=== PATIENT | female | born 1990 | race Caucasian/White ===

== ENCOUNTER 2017-02-20 13:47 | Emergency (ER) | payer BC, OTHER ==
[2017-02-20 13:56] VITALS: BMI 38.4
--- NOTE | 2017-02-20 14:35 | PDOC ---
History of Present Illness - General History Source: Patient Exam Limitations: No Limitations - History of Present Illness Initial Comments: 02/20/17 14:36 The patient is a 26-year-old woman, , currently 8 weeks , with a past medical history of urinary tract infections, who presents to the emergency department via walk-in for further evaluation of possible for food poising. She recalls eating [place] food- White rice and sweet and sour chicken with her for dinner, yesterday at approximately 18:00PM. Patient states that she woke up nauseous and vomited at approximately 01:00 AM and has vomited every hour on the hour. last episode was at 13:27 this afternoon. No noted blood/ mucous in emesis. She also reports associated symptoms of epigastric cramping discomfort and lightheadedness. She states that her does not present any symptoms. No recent travel. She also recalls eating chicken, for lunch yesterday, which her did not consume. No history of gastrointestinal issues. Her first visit will be in 4 days. She denies fever, generalized weakness. She denies chest pain, shortness of breath, cough She denies diarrhea, dysuria, hematuria, urinary frequency and urgency, flank pain, vaginal discharge/vaginal bleeding Allergies: No Known Drug Allergies Past Surgical History: None reported Social History: No tobacco, ETOH and recreational drug use. <Shari Alcantara - Last Filed: 02/20/17 14:53> <Shad Chowdary - Last Filed: 02/20/17 15:58> - General Chief Complaint: Nausea/Vomiting Stated Complaint: POTENTIAL FOOD POISONING (8 WKS ) Time Seen by Provider: 02/20/17 14:31 Past History <Shari Alcantara - Last Filed: 02/20/17 14:53> - Past Medical History Disorders: Yes (UTI X4) Suicide Attempt (Hx): No - Reproductive History Is Patient Now?: Yes (#): 1 - Immunization History Immunization Up to Date: Yes - Psycho/Social/Smoking Cessation Hx Anxiety: No Suicidal Ideation: No Smoking History: Never smoked Have you smoked in the past 12 months: No Information on smoking cessation initiated: No Hx Alcohol Use: No Drug/Substance Use Hx: No Substance Use Type: None <Shad Chowdary - Last Filed: 02/20/17 15:58> - Past Medical History Allergies/Adverse Reactions: Allergies Allergy/AdvReac Type Severity Reaction Status Date / Time No Known Allergies Allergy Verified 02/20/17 13:53 Home Medications: Ambulatory Orders No Home Medications 0 dose .ROUTE UTDICT 11/23/13 Review of Systems - Review of Systems Constitutional: No: Chills, Fever Respiratory: No: Cough, Shortness of Breath Cardiac (ROS): No: Chest Pain ABD/GI: Yes: Diarrhea, Nausea, Vomiting : No: Dysuria All Other Systems: Reviewed and Negative <Shad Chowdary - Last Filed: 02/20/17 15:58> *Physical Exam - Vital Signs Last Vital Signs Temp Pulse Resp BP Pulse Ox 98.2 F 100 H 20 108/56 98 02/20/17 13:53 02/20/17 13:53 02/20/17 13:53 02/20/17 13:53 02/20/17 13:53 - Physical Exam Comments: 02/20/17 14:37 GENERAL: The patient is awake, alert, and fully oriented, in no acute distress. HEAD: Normal with no signs of trauma. EYES: Pupils equal, round and reactive to light, extraocular movements intact, sclera anicteric, conjunctiva clear with no pallor. ENT: Ears normal, nares patent, oropharynx clear without exudates. Dry mucous membranes. NECK: Normal range of motion, supple without lymphadenopathy, JVD, or masses. LUNGS: Breath sounds equal, clear to auscultation bilaterally. No wheeze/ crackles. HEART: Regular rate and rhythm, normal S1 and S2 without murmur or rub. ABDOMEN: Soft/nontender/nondistended. BS wnl. No guarding or rebound. No palpable masses. No hepatosplenomegaly. EXTREMITIES: Normal range of motion, no edema. No clubbing or cyanosis. No cords, erythema, or tenderness. NEUROLOGICAL: Cranial nerves II through XII grossly intact. Normal speech, normal gait. PSYCH: Normal mood, normal affect. SKIN: Warm, Dry, normal turgor, no rashes or lesions noted. <Shari Alcantara - Last Filed: 02/20/17 14:53> - Vital Signs Last Vital Signs Temp Pulse Resp BP Pulse Ox 98.2 F 100 H 20 108/56 98 02/20/17 13:53 02/20/17 13:53 02/20/17 13:53 02/20/17 13:53 02/20/17 13:53 <Shad Chowdary - Last Filed: 02/20/17 15:58> Medical Decision Making - Medical Decision Making 02/20/17 14:55 A portion of this note was documented by scribe services under my direction. I have reviewed the details of the note, within reason, and agree with the documentation with the following case summary and management plan written by me. 26-year-old female healthy and at 8 weeks gestation presents for evaluation of nausea/vomiting/diarrhea overnight, no associated abdominal pain or vaginal bleeding or discharge. Beginning to feel a little lightheaded, so presents for evaluation. No fevers or chills, no recent travel, no sick contacts, no recent antibiotics. A [place] food last night, but ate the same thing and he feels fine. No abdominal pain. Vital signs normal. Dry mucosa. Abdomen is benign. 26-year-old female with nausea/vomiting/diarrhea overnight, benign abdominal exam without peritoneal findings. Presentation seems most consistent with gastroenteritis, question viral versus toxin mediated. Patient is well- appearing without red flags on history or physical exam. check UA and confirm status Antiemetics IV fluid rehydration Reassess 02/20/17 15:54 Urine positive, trace ketones, only 4 white blood cells with many epithelial cells, not suspicious for subclinical UTI in woman. Markedly improved after IV fluids and Reglan, tolerating by mouth, sitting up and smiling. Agrees with discharge plan, will follow-up with her OB, understands return criteria. <Shad Chowdary - Last Filed: 02/20/17 15:58> *DC/Admit/Observation/Transfer - Attestations Scribe Attestion: 02/20/17 14:37 Documentation prepared by Shari Alcantara, acting as medical writer for Shad Chowdary MD. <Shair Alcantara - Last Filed: 02/20/17 14:53> <Shad Chowdary - Last Filed: 02/20/17 15:58> Diagnosis at time of Disposition: Acute gastroenteritis - Discharge Dispostion Disposition: HOME Condition at time of disposition: Improved - Patient Instructions Printed Discharge Instructions: DI for Viral Gastroenteritis -- Adult Additional Instructions: Activity as tolerated. Stay hydrated. Advance diet as tolerated, avoiding dairy , spicy or fatty foods, caffeine and alcohol. Speak to your OB about whether they are okay with you taking anti-nausea medications. 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 Return to the emergency department for any new or concerning symptoms, particularly persistent or worsening vomiting or diarrhea or dehydration, abdominal pain, fevers or chills, bleeding or discharge.
[2017-02-20] MEDS ORDERED: METOCLOPRAMIDE HCL 10 MG TABLET (FP) PO ONE ×2 (14:37→14:38)
[2017-02-20] MEDS ORDERED: SODIUM CHLORIDE 1,000 ML IV ONE (14:49)
[2017-02-20] MEDS ORDERED: FAMOTIDINE 20 MG/50 ML IVPB 50 ML IVPB ONE ×2 (14:52→14:53)
[2017-02-20 14:59] LABS: URINE APPEARANCE SLCLOUDY; URINE BILIRUBIN NEGATIVE (NEGATIVE); URINE COLOR YELLOW; URINE GLUCOSE (UA) NEGATIVE (NEGATIVE); URINE KETONE TRACE (NEGATIVE); URINE NITRITE NEGATIVE (NEGATIVE); URINE PROTEIN NEGATIVE (NEGATIVE); URINE UROBILINOGEN NEGATIVE E.U./dl (0.2-1.0)
[2017-02-20 15:01] LABS: URINE BLOOD 2+ (NEGATIVE); URINE LEUK ESTERASE TRACE (NEGATIVE)
[2017-02-20 15:03] LABS: URINE BACTERIA MODERATE /hpf (NONE SEEN); URINE MUCUS MANY; URINE RBC 11 /hpf (0-3); URINE WBC 4 /hpf (3-5)
[2017-02-20 16:20] VITALS: BP 117/74; PULSE 87; TEMP 98.6
== END 2017-02-20 16:20 | disposition home or self-care (01) ==
LOC: JER 13:47
PROC: 3E033GC Introduction of Other Therapeutic Substance into Peripheral Vein, Percutaneous Approach (ICD-10-PCS; principal; 2017-02-20)
DX: O99.89 Other specified diseases and conditions complicating pregnancy, childbirth and the puerperium (principal); K52.9 Noninfective gastroenteritis and colitis, unspecified; Z3A.08 8 weeks gestation of pregnancy
CPT/HCPCS: 81003; 81015; 84703; 99284-25

== ENCOUNTER 2017-10-13 04:52 | Inpatient (IN) | payer BC ==
[2017-10-13] MEDS ORDERED: DEXTROSE 5%-LACTATED RINGERS 1,000 ML IV ONE (05:55)
[2017-10-13 06:09] VITALS: BMI 40.6
[2017-10-13 06:22] LABS: BASOPHIL 0.1 % (0-2.0); EOSINOPHIL 0.2 % (0-4.5); MCH 26.3 pg (25.7-33.7); MCHC 33.1 g/dl (32.0-36.0); MEAN CELL VOLUME 79.4 fl (80-96); MEAN PLT VOLUME 8.8 fl (7.5-11.1); NEUTROPHILS 78.2 % (42.8-82.8); PLATELET COUNT 237 K/MM3 (134-434); RDW 15.2 % (11.6-15.6); WHITE BLOOD COUNT 13.1 K/mm3 (4.0-10.0)
[2017-10-13 07:00] LABS: ANION GAP 8 (8-16); CALCIUM 8.4 mg/dL (8.5-10.1); CO2 23 mmol/L (21-32); CREATININE 0.8 mg/dL (0.55-1.02); GLUCOSE,RANDOM 92 mg/dL (74-106); INR 0.95 (0.82-1.09); PROTHROMBIN TIME (PATIENT) 10.7 SEC (9.98-11.88)
[2017-10-13] MEDS ORDERED: TUBERCULIN PPD 5 TU/0.1ML SYRINGE (IN PATIENT USE ONLY) ID ONE (08:00)
[2017-10-13] MEDS ORDERED: OXYTOCIN 15 UNITS/ LR 250 ML 15 UNIT/250 ML INFUS.BAG IVPB ONE (09:12)
[2017-10-13] MEDS ORDERED: OXYTOCIN 15 UNITS/ LR 250 ML 15 UNIT/250 ML INFUS.BAG IVPB SCH (09:20)
--- NOTE | 2017-10-13 15:22 | HP ---
Past Medical History - Primary Care Physician PCP:: Charan Vargas - Admission Chief Complaint: 39 .5 weeks, labor History of Present Illness: 26 yo f g 1p0 edc by sono112/16/16 in labor , cx 4 cm 80 vx -2 mi, fhr cat 1, contraction , irregular History Source: Patient Limitations to Obtaining History: No Limitations - Past Medical History ...: 1 ...Para: 0 ...Term: 0 ...: 0 ...Spon : 0 ...Induced : 0 ...Multiple Gestation: 0 ...LMP: 12/28/16 ... Weeks Gestation by Dates: 41.2 ...EDC by Dates: 10/04/17 ...EDC by Sono: 10/15/17 - Past Surgical History Hx Myomectomy: No Hx Transabdominal Cerclage: No - Smoking History Smoking history: Never smoked Have you smoked in the past 12 months: No - Alcohol/Substance Use Hx Alcohol Use: No - Social History Usual Living Arrangement: Yes: With Spouse History of Recent Travel: No Home Medications - Allergies Allergies/Adverse Reactions: Allergies Allergy/AdvReac Type Severity Reaction Status Date / Time No Known Drug Allergies Allergy Verified 10/13/17 06:32 coconut Allergy Mild Hives Uncoded 10/13/17 06:32 - Home Medications Home Medications: Ambulatory Orders Vitamins (Sjr) - 1 tab PO DAILY 08/19/17 Review of Systems - Review of Systems Constitutional: reports: No Symptoms Eyes: reports: No Symptoms HENT: reports: No Symptoms Neck: reports: No Symptoms Cardiovascular: reports: No Symptoms Respiratory: reports: No Symptoms Gastrointestinal: reports: No Symptoms Genitourinary: reports: No Symptoms Breasts: reports: No Symptoms Reported Musculoskeletal: reports: No Symptoms Integumentary: reports: No Symptoms Neurological: reports: No Symptoms Endocrine: reports: No Symptoms Hematology/Lymphatic: reports: No Symptoms Psychiatric: reports: No Symptoms Physical Exam - Maternity Vital Signs: Vital Signs Temperature 97.7 F 10/13/17 14:00 Pulse Rate 90 10/13/17 14:00 Respiratory Rate 20 10/13/17 14:00 Blood Pressure 118/68 10/13/17 14:00 O2 Sat by Pulse Oximetry (%) Constitutional: Yes: Well Nourished, No Distress, Calm Eyes: Yes: WNL, Conjunctiva Clear, EOM Intact HENT: Yes: WNL, Atraumatic, Normocephalic Neck: Yes: WNL, Supple, Trachea Midline Cardiovascular: Yes: WNL, Regular Rate and Rhythm Breast(s): Yes: WNL - Abdominal Exam/OB Fundal Height: 40 Number of Fetuses: Single Presentation: Vertex Contractions: Yes Regularity: Irregular Intensity: Mod/Strong Monitor Mode: External Heart Rate Location: [facility] [place] Category: I Accelerations: Uniform Decelerations: None - Vaginal Exam/OB Vaginal Bleediing: Bloody Show Speculum Exam: No Dilatation (cm): 4 cm Effacement (%): 80 Amniotic Membrane Status: Intact Presentation: Vertex/Position Station: -2 - Physical Exam Edema: No Edema: LLE: Trace, RLE: Trace Deep Tendon Reflex Grade: Normal +2 - Labs Lab Results: CBC, BMP 10/13/17 05:55 10/13/17 05:55 Hemorrhage Risk Assessment - Risk Factors Medium Risk Factors: Yes: None Risk Score: 1 Risk Level: Medium Risk Problem List - Problems (1) with 39 completed weeks gestation Code(s): Z3A.39 - 39 WEEKS GESTATION OF (2) Labor established Code(s): DQZ0780 - Assessment/Plan admit for vaginal delivery, heart monitoring, pitocin if comtraction does not become regular
[2017-10-13] MEDS ORDERED: BUTORPHANOL TARTRATE 1 MG/ML VIAL ONE ×2 (19:49)
[2017-10-13] MEDS ORDERED: PROMETHAZINE HCL 25 MG/1 ML VIAL ONE (19:49)
--- NOTE | 2017-10-13 19:50 | PN ---
Progress Note (short form) - Note Progress Note: cx 8 cm, 80 vx -1 mr, fhr cat 1 , wants pain meds. advise low dose pitocin, cont FHM Problem List - Problems (1) with 39 completed weeks gestation Code(s): Z3A.39 - 39 WEEKS GESTATION OF (2) Labor established Code(s): BJS6574 -
[2017-10-13] MEDS ORDERED: BUTORPHANOL TARTRATE 1 MG/ML VIAL IVPUSH ONE (20:00)
[2017-10-13] MEDS ORDERED: PROMETHAZINE HCL 25 MG/1 ML VIAL IVPUSH ONE (20:00)
--- NOTE | 2017-10-13 22:27 | PN ---
Progress Note (short form) - Note Progress Note: cx 9 cm, 80 vx , -1, OP , fhr cat 1,. c/o pain advised epidural declined Problem List - Problems (1) with 39 completed weeks gestation Code(s): Z3A.39 - 39 WEEKS GESTATION OF (2) Labor established Code(s): BFG4503 -
[2017-10-13] MEDS: ELECTROLYTE-148 SOLN 1,000 ML IV SCH (22:30)
[2017-10-13] MEDS ORDERED: FENTANYL/BUPIVACAINE/NS/PF - PCEA - 50 ML DISP.SYRIN EP ONE (22:33)
--- NOTE | 2017-10-13 22:46 | PN ---
Progress Note (short form) - Note Progress Note: wants epidural now, anesthesia informed Problem List - Problems (1) with 39 completed weeks gestation Code(s): Z3A.39 - 39 WEEKS GESTATION OF (2) Labor established Code(s): [id number] -
[2017-10-13] MEDS ORDERED: FENTANYL/BUPIVACAINE/NS/PF - PCEA - 50 ML DISP.SYRIN EP SCH (23:30)
[2017-10-14] MEDS ORDERED: OXYTOCIN 20 UNITS in 0.9% NS 20 UNIT/1,000 ML INFUS.BAG IV ONE (00:07)
[2017-10-14] MEDS ORDERED: METHYLERGONOVINE MALEATE 0.2 MG/1 ML AMP IM PRN (02:43)
[2017-10-14] MEDS ORDERED: BENZOCAINE 28 GM HEMORRHOIDAL OINTMENT TP PRN (02:43)
[2017-10-14] MEDS ORDERED: oxyCODONE HCL 5 MG TABLET PO PRN (02:43)
[2017-10-14] MEDS ORDERED: WITCH HAZEL 50% (TUCKS) 40 PAD/JAR PAD TP PRN (02:43)
[2017-10-14] MEDS ORDERED: BENZOCAINE 20% 57 GM BOTTLE TP PRN (02:43)
[2017-10-14] MEDS ORDERED: BISACODYL 10 MG SUPP.RECT RC PRN (02:43)
[2017-10-14] MEDS ORDERED: D5W-LR W/ 20 UNITS OXYTOCIN 20 UNIT/1,000 ML INFUS.BAG IV SCH (02:45)
[2017-10-14] MEDS: FERROUS SO4 325 MG TABLET (FP) PO SCH ×2 (09:58→21:18)
[2017-10-14] MEDS: PRENATAL VITAMINS W/ FOLIC ACID TABLET (FP) PO SCH (09:58)
[2017-10-14] MEDS: ACETAMINOPHEN 325 MG TABLET (FP) PO PRN ×2 (10:01→21:18)
[2017-10-14] MEDS: IBUPROFEN 600 MG TABLET (FP) PO PRN ×2 (10:01→21:19)
[2017-10-15 08:03] LABS: BASOPHIL 0.4 % (0-2.0); MCH 25.4 pg (25.7-33.7); MCHC 31.7 g/dl (32.0-36.0); MEAN CELL VOLUME 80.3 fl (80-96); MEAN PLT VOLUME 8.4 fl (7.5-11.1); NEUTROPHILS 74.4 % (42.8-82.8); PLATELET COUNT 223 K/MM3 (134-434); RDW 15.4 % (11.6-15.6); WHITE BLOOD COUNT 15.6 K/mm3 (4.0-10.0)
[2017-10-15] MEDS: IBUPROFEN 600 MG TABLET (FP) PO PRN (10:03)
[2017-10-15] MEDS: ACETAMINOPHEN 325 MG TABLET (FP) PO PRN (10:03)
[2017-10-15] MEDS: FERROUS SO4 325 MG TABLET (FP) PO SCH ×2 (10:03→21:26)
[2017-10-15] MEDS: PRENATAL VITAMINS W/ FOLIC ACID TABLET (FP) PO SCH (10:03)
--- NOTE | 2017-10-15 15:31 | PN ---
Progress Note (short form) - Note Progress Note: ppd 1 doing well, no excess vaginal bleeding, abdomen soft, no distension, no cva lochia mild , no calf tenderness plan ambulate , observe CBC, BMP 10/15/17 07:00 10/13/17 05:55 Last Vital Signs Temp Pulse Resp BP Pulse Ox 98.1 F 89 20 109/69 100 10/15/17 10:00 10/15/17 10:00 10/15/17 10:00 10/15/17 10:00 10/14/17 04:00 plan for d/c home in am Problem List - Problems (1) with 39 completed weeks gestation Code(s): Z3A.39 - 39 WEEKS GESTATION OF (2) Labor established Code(s): [id number] -
[2017-10-15] MEDS ORDERED: SENNOSIDES/DOCUSATE COMBO (SENNA PLUS) TABLET (UD) PO PRN (22:00)
[2017-10-15 23:50] VITALS: PULSE 84
--- NOTE | 2017-10-16 08:11 | DS ---
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 Signs: Vital Signs Temperature 98.1 F 10/15/17 21:00 Pulse Rate 84 10/15/17 21:00 Respiratory Rate 20 10/15/17 21:00 Blood Pressure 121/66 10/15/17 21:00 O2 Sat by Pulse Oximetry (%) 100 10/14/17 04:00 Constitutional: Yes: Well Nourished, No Distress, Calm Eyes: Yes: WNL, Conjunctiva Clear, EOM Intact HENT: Yes: WNL, Atraumatic, Normocephalic Neck: Yes: WNL, Supple, Trachea Midline Cardiovascular: Yes: WNL, Regular Rate and Rhythm Respiratory: Yes: WNL, Regular, CTA Bilaterally Gastrointestinal: Yes: WNL ...Rectal Exam: Yes: WNL Renal/: Yes: WNL ....Post : Yes: Uterus firm, Uterus non-tender, Slight lochia rubra Breast(s): Yes: WNL Musculoskeletal: Yes: WNL Extremities: Yes: WNL Edema: No Integumentary: Yes: WNL Neurological: Yes: WNL, Alert, Oriented ...Motor Strength: WNL Psychiatric: Yes: WNL, Alert, Oriented Labs: CBC, BMP 10/15/17 07:00 10/13/17 05:55 Delivery - Delivery Vaginal Delivery: Spontaneous (no complication) Type of Anesthesia: Epidural Episiotomy/Laceration: None EBL (cc): 300 Delivery, Single - Stages of Labor Date 1st Stage Initiatied: 10/13/17 Time 1st Stage Initiated: 01:00 Date 2nd Stage Initiated: 10/14/17 Time 2nd Stage Initiated: 02:00 Date of Delivery: 10/14/17 Time of Delivery: 02:32 Time Placenta Delivered: 02:37 Placenta: Yes: Spontaneous - 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: No Gender: Male Weight: 9 lb 3 oz Position: Left, OA Total Hours ROM (Hrs/Mins): 1237 - 1 Minute Total Score: 9 5 Minutes Total Score: 9 - [place] Feeding Plan Initial Plan: Exclusive throughout hospitalization Discharge Summary Reason For Visit: LABOR ADMIT Current Active Problems Labor established (Acute) with 39 completed weeks gestation (Acute) Procedures: Principal: Condition: Good - Instructions Diet, Activity, Other Instructions: regular diet, follow up office 4 weeks Referrals: Charan Vargas MD [Staff Physician] - Disposition: HOME - Home Medications Comprehensive Discharge Medication List: Ambulatory Orders Vitamins (Sjr) - 1 tab PO DAILY 08/19/17
[2017-10-16] MEDS: PRENATAL VITAMINS W/ FOLIC ACID TABLET (FP) PO SCH (09:16)
[2017-10-16] MEDS: FERROUS SO4 325 MG TABLET (FP) PO SCH (09:16)
[2017-10-16] MEDS: ELECTROLYTE-148 SOLN 1,000 ML IV SCH (09:18)
[2017-10-16 09:20] VITALS: BP 110/60; TEMP 98.4
== END 2017-10-16 12:10 | disposition home or self-care (01) | DRG 775 ==
LOC: JDEL 04:52 → JLDR 04:55 → J3W 10-14 04:46
PROVIDERS: ADMIT Obstetrics & Gynecology; ATTEND Obstetrics & Gynecology
PROC: 10E0XZZ Delivery of Products of Conception, External Approach (ICD-10-PCS; principal; 2017-10-14)
DX: O99.214 Obesity complicating childbirth (principal); Z68.41 Body mass index [BMI] 40.0-44.9, adult; E66.8 Other obesity; Z3A.39 39 weeks gestation of pregnancy; Z37.0 Single live birth
CPT/HCPCS: 36415; 59409; 80048; 85025; 85610; 85730; 86593; 86780; 86850; 86900; 86901

== ENCOUNTER 2019-04-30 16:42 | Emergency (ER) | payer BC | END 2019-04-30 20:35 | disposition home or self-care (01) | LOC: JER 16:42 ==

== ENCOUNTER 2019-12-08 16:47 | Inpatient (IN) | payer BC ==
[2019-12-08] MEDS ORDERED: AMPICILLIN - 2 GM in SODIUM CHLORIDE 100 ML IVPB ONE (17:35)
[2019-12-08 18:09] VITALS: BMI 40.7
[2019-12-08] MEDS ORDERED: ELECTROLYTE-148 SOLN 1,000 ML IV SCH (18:15)
[2019-12-08 18:28] LABS: BASO % 0.3 % (0-2.0); EOS % 0.4 % (0-4.5); HEMATOCRIT 32.8 % (32.4-45.2); HEMOGLOBIN 10.7 GM/dL (10.7-15.3); LYMPH % 15.4 % (8-40); MCH 26.4 pg (25.7-33.7); MCHC 32.7 g/dl (32.0-36.0); MEAN CELL VOLUME 80.7 fl (80-96); MONO % 5.7 % (3.8-10.2); NEUT % 78.2 % (42.8-82.8); PLATELET COUNT 190 K/MM3 (134-434); RBC 4.07 M/mm3 (3.60-5.2); RDW 15.5 % (11.6-15.6); WHITE BLOOD COUNT 10.1 K/mm3 (4.0-10.0)
[2019-12-08 18:48] LABS: INR 0.89 (0.83-1.09); PROTHROMBIN TIME (PATIENT) 10.5 SEC (9.7-13.0)
[2019-12-08 18:51] LABS: ACTIVATED PTT 25.1 SECONDS (25.2-36.5)
[2019-12-08 18:52] LABS: BLOOD UREA NITROGEN 11.4 mg/dL (7-18); CALCIUM 8.7 mg/dL (8.5-10.1); CREATININE 0.7 mg/dL (0.55-1.3); POTASSIUM 3.9 mmol/L (3.5-5.1)
[2019-12-08] MEDS ORDERED: LIDO 2%/EPI 1:200000 PRESRVFRE (20 ML SDVIAL) ONE (19:15)
[2019-12-08] MEDS ORDERED: FENTANYL/BUPIVACAINE/NS/PF - PCEA - 50 ML DISP.SYRIN EP ONE (19:16)
[2019-12-08] MEDS ORDERED: NALOXONE HCL 0.4 MG/ML VIAL IVPUSH PRN (19:38)
[2019-12-08] MEDS ORDERED: FENTANYL/BUPIVACAINE/NS/PF - PCEA - 50 ML DISP.SYRIN EP SCH (19:45)
--- NOTE | 2019-12-08 20:23 | HP ---
Past Medical History - Primary Care Physician PCP:: Issac Mendes - Admission Chief Complaint: 29yo P1 with at EGA 39w6d admitted in spont labor. History of Present Illness: Spont labor since about 3:30pn, no SROM. Pt was noted to be 4cm on admission and now progressed to 7cm. complicated by morbid obesity. She had GCT negative x 2. Pt had prior of baby weighing 9.3 lbs w/o complications. Vag GBS (+) Thick meconium noted with AROM. 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: Alzheimer's, CVA, Dementia, Migraine, Multiple Sclerosis, Peripheral Neuropathy, Parkinson's, Seizure, Syncope, TIA, Vertigo, Other Cardiovascular: No: AFIB, Aneurysm, Aortic Insufficiency, Aortic Stenosis, CAD, CHF, Deep Vein Thrombosis, HTN, Hyperlipdemia, MD, Mitral Insufficiency, Mitral Stenosis, Murmur, Pulmonary Hypertension, Other Pulmonary: No: Asthma, Bronchitis, Cancer, COPD, O2 Dependent, Pneumonia, Previously Intubated, Pulmonary Embolus, Pulmonary Fibrosis, Sleep Apnea, Other Gastrointestinal: No: Ascites, Cancer, Constipation, Crohn's Disease, Diverticulitis, Diverticulosis, Esophageal Varices, Gastritis, GERD, GI Bleed, Hemorrhoids, Hiatal Hernia, Inflamatory Bowel Disease, Irritable Bowel Disease, Pancreatitis, Peptic Ulcer Disease, Ulcerative Colitis, Other Hepatobiliary: No: Cirrhosis, Cholelithiasis, Cholecystitis, Choledocholithiasis , Hepatitis A, Hepatitis B, Hepatitis C, Other Renal/: No: Renal Failure, Renal Inusuff, BPH, Cancer, Hematuria, Hemodialysis , Neurogenic Bladder, Renal Calculi, UTI, Other Reproductive: Yes: Other (morbid obesity with BMI 41) ...: 2 ...Para: 1 ...Term: 1 ...: 0 ...Spon : 0 ...Induced : 0 ...Multiple Gestation: 0 ...LMP: 02/25/19 ... Weeks Gestation by Dates: 39.6 ...EDC by Dates: 12/02/19 ...EDC by Sono: 12/09/19 Heme/Onc: No: Anemia, B12 Deficiency, Bleeding Disorder, Cancer, Current Chemotherapy, Current Radiation Therapy, Hemochromatosis, Hypercoaguable State, Myeloproliferative Synd, Sickle Cell Disease, Sickle Cell Trait, Thrombocytopenia, Other Infectious Disease: No: AIDS, C-Diff, Herpes Zoster, HIV, MRSA, STD's, Tuberculosis, VREF, Other Psych: No: Addictions, Anxiety, Bipolar, Depression, Panic, Psychosis, Schizophrenia, Other Musculoskeletal: No: Bursitis, Chronic low back pain, Hemiparesis, Hemiplegia, Osteoarthritis, Paraplegia, Other Rheumatology: No: Fibromyalgia, Gout, Lupus, Rheumatoid Arthritis, Sarcoidosis, Vasculitis, Other ENT: No: Allergic Rhinitis, Sinusitis, Other Endocrine: No: Oxford's Disease, Vadim's Disease, Diabetes Insipidus, Diabetes Mellitus, Hyperparathyroidism, Hyperthyroidism, Hypothyroidism, Osteopenia, SIADH, Other Dermatology: No: Basal Cell, Cellulitis, Eczema, Melanoma, Psoriasis, Squamous Cell, Other - Past Surgical History Past Surgical History: Yes: None Hx Myomectomy: No Hx Transabdominal Cerclage: No - Smoking History Smoking history: Never smoked Have you smoked in the past 12 months: No - Alcohol/Substance Use Hx Alcohol Use: No History of Substance Use: reports: None - Social History Usual Living Arrangement: Yes: With Significant Other, With Child ADL: Independent History of Recent Travel: No Home Medications - Allergies Allergies/Adverse Reactions: Allergies Allergy/AdvReac Type Severity Reaction Status Date / Time No Known Drug Allergies Allergy Verified 12/08/19 17:16 coconut Allergy Mild Hives Uncoded 12/08/19 17:16 - Home Medications Home Medications: Ambulatory Orders Vitamins (Sjr) - 1 tab PO DAILY 08/19/17 Cephalexin Monohydrate [Keflex -] 500 mg PO BID #20 capsule 04/30/19 Family Medical History Family History: Unremarkable Review of Systems Findings/Remarks: Well appearing - Review of Systems Constitutional: reports: No Symptoms (s/p epidural) Eyes: reports: No Symptoms HENT: reports: No Symptoms Neck: reports: No Symptoms Cardiovascular: reports: No Symptoms Respiratory: reports: No Symptoms Gastrointestinal: reports: No Symptoms Genitourinary: reports: No Symptoms Breasts: reports: No Symptoms Reported Musculoskeletal: reports: No Symptoms Integumentary: reports: No Symptoms Neurological: reports: No Symptoms Endocrine: reports: No Symptoms Hematology/Lymphatic: reports: No Symptoms Psychiatric: reports: No Symptoms Pain Intensity: 0 (after epidural) Physical Exam - Maternity Vital Signs: Vital Signs Temperature 98 F 12/08/19 18:11 Pulse Rate 86 12/08/19 19:00 Respiratory Rate 18 12/08/19 19:00 Blood Pressure 108/63 12/08/19 19:00 O2 Sat by Pulse Oximetry (%) Constitutional: Yes: Well Nourished, No Distress, Calm Eyes: Yes: WNL, Conjunctiva Clear HENT: Yes: WNL, Atraumatic, Normocephalic Neck: Yes: WNL, Supple, Trachea Midline Cardiovascular: Yes: WNL, Regular Rate and Rhythm Lungs: Clear to auscultation, Normal air movement - Abdominal Exam/OB Fundal Height: 40 Number of Fetuses: Single Presentation: Vertex Contractions: Yes Regularity: Regular Intensity: Unaware Monitor Mode: External Heart Rate (range): 140 Heart Rate Location: Midline Category: I Accelerations: Non-Uniform Decelerations: None - Vaginal Exam/OB Vaginal Bleediing: No Speculum Exam: No Dilatation (cm): 7 Effacement (%): 80 Amniotic Membrane Status: Ruptured (AROM) Amniotic Fluid: Yes: Meconium Stained Meconium: Thick Presentation: Vertex/Position Station: 0 (Pelvimetry: Gynecoid pelvimetry. EFW 3800 grams by Dex's maneuvers.) - Physical Exam Musculoskeletal: Yes: WNL Extremities: Yes: WNL Edema: Yes Edema: LLE: Trace, RLE: Trace Integumentary: Yes: WNL Deep Tendon Reflex Grade: Normal +2 ...Motor Strength: WNL Psychiatric: Yes: WNL, Alert, Oriented - Labs Lab Results: CBC, BMP 12/08/19 18:10 12/08/19 18:10 Hemorrhage Risk Assessment - Risk Factors Medium Risk Factors: Yes: Obesity (BMI >40) High Risk Factors: Yes: None Risk Score: 1 Risk Level: Medium Risk Imaging - Results Ultrasound: Report Reviewed Assessment/Plan 29yo P1 with at EGA 39w6d admitted in spont labor. Fetus with Category I tracing. Labor progressed spont to active phase. Plan to monitor progress. GBS prophylaxis was given. We discussed the risks of morbid obesity and difficult clinical as well as US measurements. Risks of unexpected macrosomia, shoulder dystocia explained. Pt declined elective C/S and states no problems delivering prior large baby. She understands that this baby can be larger still.
[2019-12-08] MEDS: AMPICILLIN - 1 GM in SODIUM CHLORIDE 100 ML IVPB SCH (21:30)
[2019-12-08] MEDS ORDERED: AMPICILLIN SODIUM 1 GM VIAL ONE (21:30)
[2019-12-08] MEDS ORDERED: OXYTOCIN 20 UNITS in 0.9% NS 20 UNIT/1,000 ML INFUS.BAG IV ONE ×2 (21:31→23:19)
[2019-12-08] MEDS ORDERED: BENZOCAINE 20% 57 GM BOTTLE TP PRN (22:48)
[2019-12-08] MEDS ORDERED: METHYLERGONOVINE MALEATE 0.2 MG/1 ML AMP IM PRN (22:48)
[2019-12-08] MEDS ORDERED: WITCH HAZEL 50% (TUCKS) 40 PAD/JAR PAD TP PRN (22:48)
[2019-12-08] MEDS ORDERED: BISACODYL 10 MG SUPP.RECT RC PRN (22:48)
[2019-12-08] MEDS ORDERED: BENZOCAINE 28 GM HEMORRHOIDAL OINTMENT TP PRN (22:48)
[2019-12-08] MEDS ORDERED: OXYTOCIN 20 UNITS in 0.9% NS 20 UNIT/1,000 ML INFUS.BAG IV SCH (23:00)
[2019-12-09] MEDS: ACETAMINOPHEN 325 MG TABLET (FP) PO PRN ×2 (01:27→12:35)
[2019-12-09] MEDS: IBUPROFEN 600 MG TABLET (FP) PO PRN ×2 (01:27→12:35)
[2019-12-09] MEDS: AMPICILLIN - 1 GM in SODIUM CHLORIDE 100 ML IVPB SCH (01:34)
--- NOTE | 2019-12-09 04:27 | PN ---
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
[2019-12-09 09:16] LABS: BASO % 0.3 % (0-2.0); EOS % 0.3 % (0-4.5); HEMATOCRIT 27.7 % (32.4-45.2); HEMOGLOBIN 8.9 GM/dL (10.7-15.3); LYMPH % 13.4 % (8-40); MCH 26.2 pg (25.7-33.7); MCHC 32.2 g/dl (32.0-36.0); MEAN CELL VOLUME 81.4 fl (80-96); MEAN PLT VOLUME 9.2 fl (7.5-11.1); MONO % 5.2 % (3.8-10.2); NEUT % 80.8 % (42.8-82.8); PLATELET COUNT 163 K/MM3 (134-434); RBC 3.41 M/mm3 (3.60-5.2); RDW 15.6 % (11.6-15.6); WHITE BLOOD COUNT 11.8 K/mm3 (4.0-10.0)
[2019-12-09] MEDS: PRENATAL VITAMINS W/ FOLIC ACID TABLET (FP) PO SCH (11:04)
--- NOTE | 2019-12-09 11:42 | PN ---
Post Progress Note - Subjective Subjective: Patient without acute complaints. Reports tolerating oral intake without nausea or vomiting. Ambulating without dizziness. Denies fevers or chills. Pain well controlled with oral pain medication. Pumping/breast feeding without issue. Passing flatus, no BM. Post Day: 1 Type of Delivery: Vital Signs: Vital Signs Temperature 98.0 F 12/09/19 04:43 Pulse Rate 85 12/09/19 04:43 Respiratory Rate 12/09/19 04:43 Blood Pressure 113/57 L 12/09/19 04:43 O2 Sat by Pulse Oximetry (%) 100 12/08/19 20:00 Breast Exam: Yes: Soft Uterus: Yes: Fundus Firm, Fundus below umbilicus, Non-tender Abdomen/GI: Yes: Abdomen soft, Passing flatus, Tolerating PO Lochia: Yes: Rubra Lochia, amount: Small Extremities: Yes: Calves non-tender Perineum: Yes: Intact Activity: Ambulating - Labs Labs: CBC WBC 11.8 K/mm3 (4.0-10.0) H 12/09/19 07:28 RBC 3.41 M/mm3 (3.60-5.2) L 12/09/19 07:28 Hgb 8.9 GM/dL (10.7-15.3) L 12/09/19 07:28 Hct 27.7 % (32.4-45.2) L D 12/09/19 07:28 MCV 81.4 fl (80-96) 12/09/19 07:28 MCH 26.2 pg (25.7-33.7) 12/09/19 07:28 MCHC 32.2 g/dl (32.0-36.0) 12/09/19 07:28 RDW 15.6 % (11.6-15.6) 12/09/19 07:28 Plt Count 163 K/MM3 (134-434) 12/09/19 07:28 MPV 9.2 fl (7.5-11.1) 12/09/19 07:28 Absolute Neuts (auto) 9.5 K/mm3 (1.5-8.0) H 12/09/19 07:28 Neutrophils % 80.8 % (42.8-82.8) 12/09/19 07:28 Lymphocytes % 13.4 % (8-40) 12/09/19 07:28 Monocytes % 5.2 % (3.8-10.2) 12/09/19 07:28 Eosinophils % 0.3 % (0-4.5) 12/09/19 07:28 Basophils % 0.3 % (0-2.0) 12/09/19 07:28 Nucleated RBC % 0 % (0-0) 12/09/19 07:28 Assessment/Plan 29yo P2 s/p , doing well stable, afebrile. Asymptomatic for anemia. care instructions reviewed. Continue routine care. Ambulation encouraged Discharge instruction reviewed.
--- NOTE | 2019-12-09 11:49 | DS ---
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: Vital Signs Temperature 98.0 F 12/09/19 04:43 Pulse Rate 85 12/09/19 04:43 Respiratory Rate 20 12/09/19 04:43 Blood Pressure 113/57 L 12/09/19 04:43 O2 Sat by Pulse Oximetry (%) 100 12/08/19 20:00 Constitutional: Yes: Well Nourished, No Distress, Calm Eyes: Yes: WNL, Conjunctiva Clear HENT: Yes: WNL, Atraumatic, Normocephalic Neck: Yes: WNL, Supple, Trachea Midline Cardiovascular: Yes: WNL, Regular Rate and Rhythm Respiratory: Yes: WNL, Regular, CTA Bilaterally Gastrointestinal: Yes: WNL, Normal Bowel Sounds, Soft ...Rectal Exam: Yes: Deferred Renal/: Yes: WNL External Genitalia: Yes: Normal ....Post : Yes: Uterus firm, Uterus non-tender, Slight lochia rubra Breast(s): Yes: WNL Musculoskeletal: Yes: WNL Extremities: Yes: WNL Edema: No Integumentary: Yes: WNL Neurological: Yes: WNL, Alert, Oriented ...Motor Strength: WNL Psychiatric: Yes: WNL, Alert, Oriented Labs: CBC, BMP 12/09/19 07:28 12/08/19 18:10 Delivery - Delivery Vaginal Delivery: No Problems, Spontaneous Type of Anesthesia: Epidural Episiotomy/Laceration: None EBL (cc): 250 Delivery, Single - Stages of Labor Date 1st Stage Initiatied: 12/08/19 Time 1st Stage Initiated: 15:30 Date 2nd Stage Initiated: 12/08/19 Time 2nd Stage Initiated: 22:20 Date of Delivery: 12/08/19 Time of Delivery: 22:37 Time Placenta Delivered: 22:40 Placenta: Yes: Spontaneous, Normal Configuration - 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 Discharge Summary Problems reviewed: Yes Reason For Visit: LABOR Spont labor at term Procedures: Principal: KELLEY Hospital Course: Normal recovery Health Concerns: Anemia Condition: Good - Instructions Diet, Activity, Other Instructions: Physical activity Resume your normal everyday activity as tolerated no heavy lifting or exercise until seen by your surgeon. You may walk unlimited anahi of and climb stairs. You may resume driving the car when you feel safe and comfortable behind the wheel. No sexual activity as instructed. Wound care If you have a bandage, leave it on, and keep dry for 48-72 hours. After that time discard the outer bandage. If they are tapes on the skin under the out of bandage leave them in place. They will peel off in the next 7 to 10 days. Do Not Peel them off. You may shower the day after surgery. If there are tapes present on the skin, you may shower over them. Diet There are no dietary restrictions. Eat healthy, high-fiber foods. Drink 6 to 8 glasses of liquid each day. This will assist in keeping your bowels are regular. Pain management You may take Tylenol or acetaminophen or Ibuprofen (for example, Motrin, Advil etc.) from my pain prescription medication is ordered should be taken as prescribed for moderate to severe pain. Call MD for any of the following: Severe pain not relieved by medication Fever of 101 or higher Excessive bleeding or drainage on dressing Inability to urinate Referrals: Yasmine aGbriel MD [Staff Physician] - Issac Mendes MD [Staff Physician] - Disposition: HOME - Home Medications Comprehensive Discharge Medication List: Ambulatory Orders Vitamins (Sjr) - 1 tab PO DAILY 08/19/17 Prescription Drug Monitoring Program (I-STOP) results: I-STOP not reviewed
[2019-12-09 12:58] LABS: RPR REACTIVE 1:2 (NONREACTIVE)
[2019-12-09] MEDS ORDERED: SENNOSIDES/DOCUSATE COMBO (SENNA PLUS) TABLET (UD) PO PRN (22:00)
--- NOTE | 2019-12-10 07:52 | PN ---
Post Progress Note - Subjective Subjective: Patient without acute complaints. Reports tolerating oral intake without nausea or vomiting. Ambulating without dizziness. Denies fevers or chills. Pain well controlled with oral pain medication. Pumping/breast feeding without issue. Passing flatus, no BM. Post Day: 2 Type of Delivery: Vital Signs: Vital Signs Temperature 97.8 F 12/09/19 21:38 Pulse Rate 90 12/09/19 21:38 Respiratory Rate 16 12/09/19 21:38 Blood Pressure 100/61 12/09/19 21:38 O2 Sat by Pulse Oximetry (%) 100 12/08/19 20:00 Breast Exam: Yes: Soft Uterus: Yes: Fundus Firm, Fundus above umbilicus Abdomen/GI: Yes: Abdomen soft, Passing flatus Lochia: Yes: Rubra Lochia, amount: Small Extremities: Yes: Calves non-tender Perineum: Yes: Intact Activity: Ambulating - Labs Labs: CBC WBC 11.8 K/mm3 (4.0-10.0) H 12/09/19 07:28 RBC 3.41 M/mm3 (3.60-5.2) L 12/09/19 07:28 Hgb 8.9 GM/dL (10.7-15.3) L 12/09/19 07:28 Hct 27.7 % (32.4-45.2) L D 12/09/19 07:28 MCV 81.4 fl (80-96) 12/09/19 07:28 MCH 26.2 pg (25.7-33.7) 12/09/19 07:28 MCHC 32.2 g/dl (32.0-36.0) 12/09/19 07:28 RDW 15.6 % (11.6-15.6) 12/09/19 07:28 Plt Count 163 K/MM3 (134-434) 12/09/19 07:28 MPV 9.2 fl (7.5-11.1) 12/09/19 07:28 Absolute Neuts (auto) 9.5 K/mm3 (1.5-8.0) H 12/09/19 07:28 Neutrophils % 80.8 % (42.8-82.8) 12/09/19 07:28 Lymphocytes % 13.4 % (8-40) 12/09/19 07:28 Monocytes % 5.2 % (3.8-10.2) 12/09/19 07:28 Eosinophils % 0.3 % (0-4.5) 12/09/19 07:28 Basophils % 0.3 % (0-2.0) 12/09/19 07:28 Nucleated RBC % 0 % (0-0) 12/09/19 07:28 Assessment/Plan 29yo P 2 now PPD # 2 s/p Doing well VSS, Afebrile RPR pos with confirmatory T. Pallidum pos ID consult with treatment requested Will hold discharge till treated Rh pos not interested in Circumcision NPV x 6wk RTO 4-6wks
[2019-12-10] MEDS: PRENATAL VITAMINS W/ FOLIC ACID TABLET (FP) PO SCH (10:57)
[2019-12-10 14:00] VITALS: BP 103/60; PULSE 100; TEMP 98.9
--- NOTE | 2019-12-10 16:48 | PN ---
Progress Note (short form) - Note Progress Note: ID CONSULT DICTATED CHARTS REVIEWED, PT SEEN CASE DISCUSSED WITH MARCO ANTONIO TORIBIO LONG HX FALSE POSITIVE SYPHILIS SEROLOGY SUSPECT SAME PT HIV (-) WILL OBTAIN FTA NO TREATMENT ADVISED FOR MOTHER FOLLOW UP [facility] [address] [phone]
--- NOTE | 2019-12-10 17:30 | CONS ---
INFECTIOUS DISEASE CONSULTATION DATE OF CONSULTATION: DATE OF DICTATION: 12/10/2019 HISTORY: The patient is a 29-year-old female evaluated for positive syphilis serology. The patient was admitted to the hospital with at-term labor. She had a normal spontaneous vaginal delivery on December 08, 2019. Syphilis serology was obtained on December 08, 2019, and was RPR positive 1-2 with a reactive MHA. 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 She was tested on 3 occasions between April 10 and May 10, 2010. Her serologies ranged from 1-4 to 1-8 with a nonreactive FTA. In addition, serology was done on October 13, 2017, RPR reactive 1-2 with a negative FTA and a negative RPR and FTA in September 2019. She denies any genital lesions at the present time. Denies any exposure. Her has been asymptomatic. HIV test done during her care in September 2019, negative. PHYSICAL EXAMINATION: General: She is awake and alert. Not acutely toxic appearing. Vital Signs: Temperature 98.9, blood pressure 103/60, pulse 100 regular, respirations 20 per minute. HEENT: Sclerae anicteric. Heart: Sounds S1, S2. Lungs: Clear. Abdomen: Soft, nontender. Extremities: Negative for edema. Negative Homans sign. IMPRESSION: Long history of false-positive syphilis serology. Suspect we are dealing with the same. Positive microhemagglutination assay likely secondary to . PLAN: Case discussed with the Department of Health. We will obtain an FTA. No treatment is advised for the mother. We will defect treatment decision for the to the transmission assembler. Patient will follow up at the [facility], [address] [place] [address], for follow up serology and treatment should this be necessary. However, no treatment advised at this time. ROSANA MENJIVAR M.D. [id number]
[2019-12-13 13:16] LABS: TREPONEMA ANTIBODY NON REACTIVE (NONREACTIVE)
== END 2019-12-10 18:34 | disposition home or self-care (01) | DRG 807 ==
LOC: JDEL 16:47 → JLDR 17:20 → J3W 12-09 00:35
PROVIDERS: ADMIT Obstetrics & Gynecology; ATTEND Obstetrics & Gynecology
PROC: 10E0XZZ Delivery of Products of Conception, External Approach (ICD-10-PCS; principal; 2019-12-09)
DX: O99.214 Obesity complicating childbirth (principal); Z37.0 Single live birth; Z3A.39 39 weeks gestation of pregnancy; E66.9 Obesity, unspecified; O99.824 Streptococcus B carrier state complicating childbirth; O69.81X0 Labor and delivery complicated by cord around neck, without compression, not applicable or unspecified
CPT/HCPCS: 36415; 36600; 59409; 80048; 82803; 85025; 85610; 85730; 86593; 86780; 86850; 86900; 86901

== ENCOUNTER 2021-12-27 06:50 | Inpatient (IN) | payer BC ==
[2021-12-27 08:21] VITALS: BMI 44.0
[2021-12-27] MEDS ORDERED: OXYTOCIN 30 UNITS in 0.9% NS 30 UNIT/500 ML INFUS.BAG IVPB ONE (10:13)
[2021-12-27] MEDS ORDERED: ELECTROLYTE-148 SOLN 1,000 ML IV SCH (10:30)
[2021-12-27] MEDS ORDERED: OXYTOCIN 30 UNITS in 0.9% NS 30 UNIT/500 ML INFUS.BAG IVPB SCH (10:30)
[2021-12-27] MEDS ORDERED: FENTANYL/BUPIVACAINE/NS/PF - PCEA - 50 ML DISP.SYRIN EP ONE ×2 (16:17→21:46)
[2021-12-27] MEDS ORDERED: NALOXONE HCL 0.4 MG/ML VIAL IVPUSH PRN (16:45)
[2021-12-27] MEDS: FENTANYL/BUPIVACAINE/NS/PF - PCEA - 50 ML DISP.SYRIN EP SCH (17:15)
[2021-12-27] MEDS ORDERED: OXYTOCIN 20 UNITS in 0.9% NS 20 UNIT/1,000 ML INFUS.BAG IV ONE (18:11)
[2021-12-28] MEDS ORDERED: ACETAMINOPHEN 325 MG TABLET (FP) PO PRN (00:03)
[2021-12-28] MEDS ORDERED: BENZOCAINE 28 GM HEMORRHOIDAL OINTMENT TP PRN (00:03)
[2021-12-28] MEDS ORDERED: WITCH HAZEL 50% (TUCKS) 40 PAD/JAR PAD TP PRN (00:03)
[2021-12-28] MEDS ORDERED: oxyCODONE HCL 5 MG TABLET PO PRN (00:03)
[2021-12-28] MEDS ORDERED: METHYLERGONOVINE MALEATE 0.2 MG/1 ML AMP IM PRN (00:03)
[2021-12-28] MEDS ORDERED: BENZOCAINE 20% 57 GM BOTTLE TP PRN (00:03)
[2021-12-28] MEDS ORDERED: BISACODYL 10 MG SUPP.RECT RC PRN (00:03)
[2021-12-28] MEDS ORDERED: OXYTOCIN 20 UNITS in 0.9% NS 20 UNIT/1,000 ML INFUS.BAG IV SCH (00:15)
[2021-12-28] MEDS: IBUPROFEN 600 MG TABLET (FP) PO PRN ×4 (02:14→20:36)
[2021-12-28] MEDS: PRENATAL VITAMINS W/ FOLIC ACID TABLET (FP) PO SCH (10:12)
[2021-12-28] MEDS: FENTANYL/BUPIVACAINE/NS/PF - PCEA - 50 ML DISP.SYRIN EP SCH (19:39)
[2021-12-29 08:36] VITALS: BP 107/72; PULSE 80; TEMP 98.2
[2021-12-29 09:05] LABS: BASO % 0.7 % (0-2.0); HEMATOCRIT 31.6 % (32.4-45.2); HEMOGLOBIN 10.5 GM/dL (10.7-15.3); MCH 28.3 pg (25.7-33.7); MCHC 33.3 g/dl (32.0-36.0); MEAN CELL VOLUME 85.1 fl (80-96); MEAN PLT VOLUME 8.4 fl (7.5-11.1); MONO % 5.1 % (3.8-10.2); NEUT % 74.2 % (42.8-82.8); PLATELET COUNT 171 10^3/uL (134-434); RBC 3.71 M/mm3 (3.60-5.2); RDW 15.4 % (11.6-15.6)
[2021-12-29] MEDS: PRENATAL VITAMINS W/ FOLIC ACID TABLET (FP) PO SCH (09:45)
[2021-12-29] MEDS ORDERED: SENNOSIDES/DOCUSATE COMBO (SENNA PLUS) TABLET (UD) PO PRN (22:00)
== END 2021-12-29 12:40 | disposition home or self-care (01) | DRG 807 ==
LOC: JLDR 06:50 → J3W 12-28 01:30
PROVIDERS: ADMIT Obstetrics & Gynecology; ATTEND Obstetrics & Gynecology
PROC: 10E0XZZ Delivery of Products of Conception, External Approach (ICD-10-PCS; principal; 2021-12-27)
PROC: 3E033VJ Introduction of Other Hormone into Peripheral Vein, Percutaneous Approach (ICD-10-PCS; 2021-12-27)
DX: O99.214 Obesity complicating childbirth (principal); Z37.0 Single live birth; E66.01 Morbid (severe) obesity due to excess calories; Z3A.40 40 weeks gestation of pregnancy
CPT/HCPCS: 36415; 59409; 85025; 86850; 86900; 86901

== ENCOUNTER 2023-11-13 16:15 | Emergency (ER) | payer BC ==
[2023-11-13 16:31] VITALS: BP 101/57; PULSE 93; RESP 20; TEMP 98.5; BMI 40.6
[2023-11-13] MEDS ORDERED: ACETAMINOPHEN 325 MG TABLET (FP) PO ONE (17:22)
[2023-11-13] MEDS ORDERED: ACETAMINOPHEN 325 MG TABLET (FP) ONE (17:37)
[2023-11-13 18:02] LABS: EPI CELLS 27 /uL (0-25.1); HYALINE CASTS 2 /uL (0-3.1); PH,URINE 5.5 (5.0-8.0); URINE APPEARANCE CLEAR; URINE BACTERIA 1501 /uL (0-1359); URINE BILIRUBIN NEGATIVE (NEGATIVE); URINE COLOR YELLOW; URINE GLUCOSE (UA) NEGATIVE (NEGATIVE); URINE KETONE NEGATIVE (NEGATIVE); URINE LEUK ESTERASE 1+ (NEGATIVE); URINE NITRITE NEGATIVE (NEGATIVE); URINE PROTEIN NEGATIVE (NEGATIVE); URINE UROBILINOGEN 0.2 mg/dL (0.2-1.0); URINE WBC 93 /uL (0-25.8)
[2023-11-13 18:57] LABS: URINE CRYSTALS MODERATE /hpf; URINE RBC NONE SEEN /uL (0-23.9)
== END 2023-11-13 18:01 | disposition home or self-care (01) ==
LOC: JER 16:15
DX: O99.352 Diseases of the nervous system complicating pregnancy, second trimester (principal); R51.9 Headache, unspecified; O13.2 Gestational [pregnancy-induced] hypertension without significant proteinuria, second trimester; Z3A.15 15 weeks gestation of pregnancy; Z20.822 Contact with and (suspected) exposure to COVID-19
CPT/HCPCS: 0241U-QW; 81003; 87086; 99283-25

== ENCOUNTER 2024-05-06 07:37 | Inpatient (IN) | payer BC ==
[2024-05-06] MEDS: ELECTROLYTE-148 SOLN 1,000 ML IV SCH (08:00)
[2024-05-06 08:32] VITALS: BMI 44.6
[2024-05-06 08:47] LABS: BASO % 0.4 % (0-2.0); EOS % 0.8 % (0-4.5); HEMATOCRIT 32.9 % (32.4-45.2); HEMOGLOBIN 11.2 GM/dL (10.7-15.3); INR 0.95 (0.83-1.09); LYMPH % 15.3 % (8-40); MCH 29.4 pg (25.7-33.7); MEAN CELL VOLUME 86.4 fl (80-96); MEAN PLT VOLUME 8.2 fl (7.5-11.1); MONO % 5.3 % (3.8-10.2); NEUT % 78.2 % (42.8-82.8); PLATELET COUNT 192 10^3/uL (134-434); PROTHROMBIN TIME (PATIENT) 10.9 SEC (9.7-13.0); RBC 3.81 M/mm3 (3.60-5.2); WHITE BLOOD COUNT 11.3 K/mm3 (4.0-10.0)
[2024-05-06 09:02] LABS: POTASSIUM 3.3 mmol/L (3.5-5.1)
[2024-05-06 09:03] LABS: CALCIUM 8.9 mg/dL (8.5-10.1)
[2024-05-06 09:04] LABS: BLOOD UREA NITROGEN 11.2 mg/dL (7-18)
[2024-05-06 09:07] LABS: CREATININE 0.8 mg/dL (0.55-1.3)
[2024-05-06] MEDS ORDERED: OXYTOCIN 30 UNITS in 0.9% NS 30 UNIT/500 ML INFUS.BAG IVPB ONE (10:14)
[2024-05-06] MEDS: OXYTOCIN 30 UNITS in 0.9% NS 30 UNIT/500 ML INFUS.BAG IVPB SCH (10:30)
[2024-05-06] MEDS ORDERED: AMPICILLIN SODIUM 2 GM VIAL ONE (10:44)
[2024-05-06] MEDS: AMPICILLIN - 2 GM in SODIUM CHLORIDE 100 ML IVPB ONE (10:50)
[2024-05-06] MEDS ORDERED: AMPICILLIN SODIUM 1 GM VIAL ONE ×2 (14:59→18:31)
[2024-05-06] MEDS: AMPICILLIN - 1 GM in SODIUM CHLORIDE 100 ML IVPB SCH (15:00)
[2024-05-06] MEDS ORDERED: FENTANYL/BUPIVACAINE/NS/PF - PCEA - 50 ML DISP.SYRIN EP ONE (16:36)
[2024-05-06] MEDS: FENTANYL/BUPIVACAINE/NS/PF - PCEA - 50 ML DISP.SYRIN EP SCH (17:40)
[2024-05-06] MEDS ORDERED: NALOXONE HCL 0.4 MG/ML VIAL IVPUSH PRN (18:00)
[2024-05-06] MEDS ORDERED: LIDOCAINE HCL 1% PRESERVATIVE FREE - 30ML VIAL ONE (20:05)
[2024-05-06] MEDS ORDERED: OXYTOCIN 20 UNITS in 0.9% NS 20 UNIT/1,000 ML INFUS.BAG IV ONE (20:05)
[2024-05-06] MEDS: OXYTOCIN 20 UNITS in 0.9% NS 20 UNIT/1,000 ML INFUS.BAG IV SCH (20:16)
[2024-05-06] MEDS ORDERED: BISACODYL 10 MG SUPP.RECT RC PRN (20:20)
[2024-05-06] MEDS ORDERED: oxyCODONE HCL 5 MG TABLET PO PRN (20:20)
[2024-05-06] MEDS ORDERED: BENZOCAINE 20% 57 GM BOTTLE TP PRN (20:20)
[2024-05-06] MEDS ORDERED: BENZOCAINE 28 GM HEMORRHOIDAL OINTMENT TP PRN (20:20)
[2024-05-06] MEDS ORDERED: ACETAMINOPHEN 325 MG TABLET (FP) PO PRN (20:20)
[2024-05-06] MEDS ORDERED: WITCH HAZEL 50% (TUCKS) 40 PAD/JAR PAD TP PRN (20:20)
[2024-05-06 20:36] LABS: CORD BASE EXCESS -5.1 mmol/L (0-2); CORD HCO3 22.7 mmHg (20-29); CORD pH 7.25 (7.14-7.44)
[2024-05-06 20:44] LABS: CORD BASE EXCESS -1.7 mmol/L (0-2); CORD HCO3 23.8 mmHg (20-29); CORD PCO2 43.2 mmHg (30-78); CORD pH 7.359 (7.14-7.44)
[2024-05-06] MEDS: METHYLERGONOVINE MALEATE 0.2 MG/1 ML AMP IM PRN (22:00)
[2024-05-06] MEDS ORDERED: IBUPROFEN 600 MG TABLET (FP) PO ONE (22:40)
[2024-05-06] MEDS: IBUPROFEN 600 MG TABLET (FP) PO PRN (22:45)
[2024-05-07 00:33] VITALS: RESP 18
[2024-05-07 06:16] LABS: BASO % 0.1 % (0-2.0); EOS % 0.4 % (0-4.5); HEMATOCRIT 33.9 % (32.4-45.2); HEMOGLOBIN 11.4 GM/dL (10.7-15.3); LYMPH % 10.7 % (8-40); MCH 29.2 pg (25.7-33.7); MCHC 33.6 g/dl (32.0-36.0); MEAN PLT VOLUME 8.8 fl (7.5-11.1); MONO % 4.9 % (3.8-10.2); NEUT % 83.9 % (42.8-82.8); PLATELET COUNT 168 10^3/uL (134-434); RBC 3.89 M/mm3 (3.60-5.2); WHITE BLOOD COUNT 13.7 K/mm3 (4.0-10.0)
[2024-05-07] MEDS: PRENATAL VITAMINS W/ FOLIC ACID TABLET (FP) PO SCH (09:14)
[2024-05-07] MEDS ORDERED: SENNOSIDES/DOCUSATE COMBO (SENNA PLUS) TABLET (UD) PO PRN (22:00)
[2024-05-08 09:43] VITALS: BP 102/66; PULSE 81; TEMP 98.5
== END 2024-05-08 12:30 | disposition home or self-care (01) | DRG 807 ==
LOC: JLDR 07:37 → J3W 22:45
PROVIDERS: ADMIT Obstetrics & Gynecology; ATTEND Obstetrics & Gynecology
PROC: 10E0XZZ Delivery of Products of Conception, External Approach (ICD-10-PCS; principal; 2024-05-06)
DX: O48.0 Post-term pregnancy (principal); O99.213 Obesity complicating pregnancy, third trimester; Z3A.40 40 weeks gestation of pregnancy; Z37.0 Single live birth
CPT/HCPCS: 36415; 36600; 59409; 80048; 82803; 85025; 85610; 85730; 86850; 86900; 86901